=== PATIENT | female | born 1965 | race Caucasian/White ===

== ENCOUNTER 2022-10-02 11:39 | Emergency (ER) | payer MEDICAID, SELFPAY ==
--- NOTE | ~2022-10-02 | XR_ITS ---
EXAMINATION: XR CHEST, 2 VIEWS CLINICAL INFORMATION: Left-sided chest pain. COMPARISON: 09/23/2015 TECHNIQUE: PA and lateral views of the chest were obtained. FINDINGS: Mild biapical pleural parenchymal scarring. No consolidation, pneumothorax, or pleural effusion. Cardiac and mediastinal contours are normal. Pulmonary vasculature is unremarkable. Trachea is midline. No acute osseous findings. XR/XR chest 2V IMPRESSION: No acute cardiopulmonary findings.
[2022-10-02 11:49] VITALS: BP 143/84; PULSE 96; RESP 18; TEMP 36.2; O2SAT 98; BMI 32.4
--- NOTE | 2022-10-02 11:49 | ECG_ITS ---
Test Reason : CHESTPAIN Blood Pressure : / mmHG Vent. Rate : 081 BPM Atrial Rate : 081 BPM P-R Int : 126 ms QRS Dur : 078 ms QT Int : 356 ms P-R-T Axes : 038 012 024 degrees QTc Int : 413 ms Normal sinus rhythm Normal ECG When compared with ECG of 23-OCT-2015 10:00, No significant change was found Referred By: Ana Lind Electronically Signed By:Joe Mohan
--- NOTE | 2022-10-02 11:49 | ED.CHESTPAIN ---
HPI - Chest Pain General Chief Complaint: Chest Pain <WOO Wild - Last Filed: 10/02/22 11:52> Stated Complaint: sharp CP L side <WOO Wild - Last Filed: 10/02/22 11:52> Time Seen by Provider: 10/02/22 12:14 <WOO Wild - Last Filed: 10/02/22 11:52> Source: patient <Erin High MD - Last Filed: 10/02/22 15:50> Mode of arrival: ambulatory <Erin High MD - Last Filed: 10/02/22 15:50> History of Present Illness HPI narrative: 57-year-old female who comes in with concerns regarding a swelling over the left superior anterior chest that is not been associated with any shortness of breath, fever, chills, nipple discharge, chest pain. Patient denies any noted redness to the area and denies any traumatic event. <Erin High MD - Last Filed: 10/02/22 15:50> Related Data Allergies/Adverse Reactions: Allergies Allergy/AdvReac Type Severity Reaction Status Date / Time No Known Allergies Allergy Verified 10/02/22 11:53 <WOO Wild - Last Filed: 10/02/22 11:52> Review of Systems Review of Systems: Pertinent positives and negatives as stated in HPI. <Erin High MD - Last Filed: 10/02/22 15:50> PMFSH Past Medical History Source: nursing notes reviewed <Erin High MD - Last Filed: 10/02/22 15:50> Social History Social History: Social History Advance Directives: No Advance Directives Information Provided: No <WOO Wild - Last Filed: 10/02/22 11:52> Physical Exam Vital Signs: Vital Signs: Last Vital Signs Temp 97.1 F 10/02/22 11:49 Pulse 96 10/02/22 11:49 Resp 18 10/02/22 11:49 BP 143/84 H 10/02/22 11:49 Pulse Ox 98 10/02/22 11:49 O2 Del Method 10/02/22 11:49 BMI result Body Mass Index 32.4 <WOO Wild - Last Filed: 10/02/22 11:52> Vital Signs: Last Vital Signs Temp 97.1 F 10/02/22 11:49 Pulse 96 10/02/22 11:49 Resp 18 10/02/22 11:49 BP 143/84 H 10/02/22 11:49 Pulse Ox 98 10/02/22 11:49 O2 Del Method 10/02/22 11:49 BMI result Body Mass Index 32.4 VITAL SIGNS: Reviewed. GENERAL: Well developed, well nourished, in no acute distress. HEAD: Normocephalic/atraumatic EYES: PERRLA, EOMI LUNGS: Normal breath sounds. No adventitious sounds or accessory muscle use. 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 CARDIOVASCULAR: Regular rate and rhythm without noted murmurs ABDOMEN: Soft, non-tender, non-distended with bowel sounds. MUSCULOSKELETAL: No tenderness, deformities, or effusions noted on gross inspection. EXTREMITIES: No cyanosis, clubbing or edema. SKIN: Inspection of the skin reveals no rashes NEUROLOGIC: Alert and oriented x 4. Strength and sensation to light touch were grossly intact x 4. <Erin High MD - Last Filed: 10/02/22 15:50> Course Course Course Narrative: RME - 57 yo female former smoker (quit Apr) with no medical problems presents to the ER with worsening nonradiating left sided chest pain for the last 1 week, associated with SOB. Worse with deep breaths, palpation and cough. Reproducible on exam. VSS in triage, lungs clear. Will get CXR, EKG, trop and labs workup. <WOO Wild - Last Filed: 10/02/22 11:52> Medical Decision Making Medical Decision Making MDM Narrative: 57-year-old female who presents with barely perceptible swelling and firmness at the superior left anterior chest wall without history of constitutional symptoms to suggest acute infection. Patient did have mammography within the past 3 years. I have reviewed all investigations my interpretation is that this is likely musculoskeletal in nature, however I did discuss with the patient at bedside that it would be very important for her to follow-up with her primary care provider, she will be started on combination analgesics. <Erin High MD - Last Filed: 10/02/22 15:50> Differential Diagnosis Please see the discussion above <Erin High MD - Last Filed: 10/02/22 15:50> Lab Data Please see the discussion above <Erin High MD - Last Filed: 10/02/22 15:50> Result Diagrams: 10/02/22 12:22 10/02/22 12:22 <WOO Wild - Last Filed: 10/02/22 11:52> Labs: Lab Results 10/02/22 10/02/22 10/02/22 Range/Units 12:22 12:22 12:22 WBC 12.9 H (4.8-10.8) X10*3/uL RBC 5.01 (4.20-5.50) X10*6/uL Hgb 13.4 (12.0-16.0) g/dl Hct 42.1 (37.0-47.0) % MCV 84.0 (80.0-98.0) fL MCH 26.7 L (27.0-33.0) pg MCHC 31.8 (31.0-35.0) g/dl RDW 13.7 (11.0-16.0) % Plt Count 371 (160-400) X10*3/uL MPV 10.3 (9.4-12.3) fL Immature Gran % (Auto) 0.5 H (0.0-0.4) % Neut % (Auto) 63.1 (45-73) % Lymph % (Auto) 29.2 (20-40) % Lipscomb % (Auto) 5.2 (2-11) % Eos % (Auto) 1.5 (0-4) % Baso % (Auto) 0.5 (0-2) % Lymph # (Auto) 3.8 (1.2-4.9) X10*3/uL Lipscomb # (Auto) 0.7 (0.1-1.2) X10*3/uL Eos # (Auto) 0.2 (0.0-0.4) X10*3/uL Baso # (Auto) 0.1 (0.0-0.2) X10*3/uL Abs Immat Gran (auto) 0.06 H (0.00-0.03) X10*3/uL Absolute Neuts (auto) 8.1 (2.0-8.3) x10*3/uL Absolute Nucleated RBC 0.000 (0.0-0.012) X10*3/uL Nucleated RBC % (auto) 0.0 (0.0-0.2) /100WBC PT (10.0-13.1) SEC INR (0.9-1.1) APTT (26.0-36.4) SEC Sodium 141 (135-145) mmol/L Potassium 4.2 (3.3-5.1) mmol/L Chloride 111 H (96-108) mmol/L Carbon Dioxide 21 L (22-29) mmol/L Anion Gap 13 (12-20) BUN 16 (9-16) mg/dL Creatinine 0.70 (0.5-1.4) mg/dL Estim Creat Clear Calc 103.2 Estimated GFR > 60 Random Glucose 109 (60-115) mg/dL Calcium 9.3 (8.4-10.2) mg/dL Magnesium 2.1 (1.6-2.6) mg/dL Total Bilirubin 0.4 (0.0-1.0) mg/dL Direct Bilirubin < 0.2 (0.0-0.5) mg/dL AST 20 (5-31) U/L ALT 24 (0-31) U/L Alkaline Phosphatase 136 H (39-117) U/L Troponin I High Sens < 3.5 (<3.5-17.0) ng/L B-Natriuretic Peptide (<100) pg/mL Total Protein 7.0 (6.5-8.0) g/dL Albumin 4.0 (3.5-5.0) g/dL COVID-19 (SOFÍA) (Negative) COVID-19 Clin Com Influenza Type A (RAE) (Negative) Influenza Type B (RAE) (Negative) Influenza A & B Note 10/02/22 10/02/22 10/02/22 Range/Units 12:22 12:22 12:22 WBC (4.8-10.8) X10*3/uL RBC (4.20-5.50) X10*6/uL Hgb (12.0-16.0) g/dl Hct (37.0-47.0) % MCV (80.0-98.0) fL MCH (27.0-33.0) pg MCHC (31.0-35.0) g/dl RDW (11.0-16.0) % Plt Count (160-400) X10*3/uL MPV (9.4-12.3) fL Immature Gran % (Auto) (0.0-0.4) % Neut % (Auto) (45-73) % Lymph % (Auto) (20-40) % Lipscomb % (Auto) (2-11) % Eos % (Auto) (0-4) % Baso % (Auto) (0-2) % Lymph # (Auto) (1.2-4.9) X10*3/uL Lipscomb # (Auto) (0.1-1.2) X10*3/uL Eos # (Auto) (0.0-0.4) X10*3/uL Baso # (Auto) (0.0-0.2) X10*3/uL Abs Immat Gran (auto) (0.00-0.03) X10*3/uL Absolute Neuts (auto) (2.0-8.3) x10*3/uL Absolute Nucleated RBC (0.0-0.012) X10*3/uL Nucleated RBC % (auto) (0.0-0.2) /100WBC PT 12.9 (10.0-13.1) SEC INR 1.1 (0.9-1.1) APTT 30.3 (26.0-36.4) SEC Sodium (135-145) mmol/L Potassium (3.3-5.1) mmol/L Chloride (96-108) mmol/L Carbon Dioxide (22-29) mmol/L Anion Gap (12-20) BUN (9-16) mg/dL Creatinine (0.5-1.4) mg/dL Estim Creat Clear Calc Estimated GFR Random Glucose (60-115) mg/dL Calcium (8.4-10.2) mg/dL Magnesium (1.6-2.6) mg/dL Total Bilirubin (0.0-1.0) mg/dL Direct Bilirubin (0.0-0.5) mg/dL AST (5-31) U/L ALT (0-31) U/L Alkaline Phosphatase (39-117) U/L Troponin I High Sens (<3.5-17.0) ng/L B-Natriuretic Peptide 31 (<100) pg/mL Total Protein (6.5-8.0) g/dL Albumin (3.5-5.0) g/dL COVID-19 (SOFÍA) Negative (Negative) COVID-19 Clin Com See Note Influenza Type A (RAE) (Negative) Influenza Type B (RAE) (Negative) Influenza A & B Note 10/02/22 Range/Units 12:22 WBC (4.8-10.8) X10*3/uL RBC (4.20-5.50) X10*6/uL Hgb (12.0-16.0) g/dl Hct (37.0-47.0) % MCV (80.0-98.0) fL MCH (27.0-33.0) pg MCHC (31.0-35.0) g/dl RDW (11.0-16.0) % Plt Count (160-400) X10*3/uL MPV (9.4-12.3) fL Immature Gran % (Auto) (0.0-0.4) % Neut % (Auto) (45-73) % Lymph % (Auto) (20-40) % Lipscomb % (Auto) (2-11) % Eos % (Auto) (0-4) % Baso % (Auto) (0-2) % Lymph # (Auto) (1.2-4.9) X10*3/uL Lipscomb # (Auto) (0.1-1.2) X10*3/uL Eos # (Auto) (0.0-0.4) X10*3/uL Baso # (Auto) (0.0-0.2) X10*3/uL Abs Immat Gran (auto) (0.00-0.03) X10*3/uL Absolute Neuts (auto) (2.0-8.3) x10*3/uL Absolute Nucleated RBC (0.0-0.012) X10*3/uL Nucleated RBC % (auto) (0.0-0.2) /100WBC PT (10.0-13.1) SEC INR (0.9-1.1) APTT (26.0-36.4) SEC Sodium (135-145) mmol/L Potassium (3.3-5.1) mmol/L Chloride (96-108) mmol/L Carbon Dioxide (22-29) mmol/L Anion Gap (12-20) BUN (9-16) mg/dL Creatinine (0.5-1.4) mg/dL Estim Creat Clear Calc Estimated GFR Random Glucose (60-115) mg/dL Calcium (8.4-10.2) mg/dL Magnesium (1.6-2.6) mg/dL Total Bilirubin (0.0-1.0) mg/dL Direct Bilirubin (0.0-0.5) mg/dL AST (5-31) U/L ALT (0-31) U/L Alkaline Phosphatase (39-117) U/L Troponin I High Sens (<3.5-17.0) ng/L B-Natriuretic Peptide (<100) pg/mL Total Protein (6.5-8.0) g/dL Albumin (3.5-5.0) g/dL COVID-19 (SOFÍA) (Negative) COVID-19 Clin Com Influenza Type A (RAE) Negative (Negative) Influenza Type B (RAE) Negative (Negative) Influenza A & B Note See Note <WOO Wild - Last Filed: 10/02/22 11:52> Lab Results 10/02/22 10/02/22 10/02/22 Range/Units 12:22 12:22 12:22 WBC 12.9 H (4.8-10.8) X10*3/uL RBC 5.01 (4.20-5.50) X10*6/uL Hgb 13.4 (12.0-16.0) g/dl Hct 42.1 (37.0-47.0) % MCV 84.0 (80.0-98.0) fL MCH 26.7 L (27.0-33.0) pg MCHC 31.8 (31.0-35.0) g/dl RDW 13.7 (11.0-16.0) % Plt Count 371 (160-400) X10*3/uL MPV 10.3 (9.4-12.3) fL Immature Gran % (Auto) 0.5 H (0.0-0.4) % Neut % (Auto) 63.1 (45-73) % Lymph % (Auto) 29.2 (20-40) % Lipscomb % (Auto) 5.2 (2-11) % Eos % (Auto) 1.5 (0-4) % Baso % (Auto) 0.5 (0-2) % Lymph # (Auto) 3.8 (1.2-4.9) X10*3/uL Lipscomb # (Auto) 0.7 (0.1-1.2) X10*3/uL Eos # (Auto) 0.2 (0.0-0.4) X10*3/uL Baso # (Auto) 0.1 (0.0-0.2) X10*3/uL Abs Immat Gran (auto) 0.06 H (0.00-0.03) X10*3/uL Absolute Neuts (auto) 8.1 (2.0-8.3) x10*3/uL Absolute Nucleated RBC 0.000 (0.0-0.012) X10*3/uL Nucleated RBC % (auto) 0.0 (0.0-0.2) /100WBC PT (10.0-13.1) SEC INR (0.9-1.1) APTT (26.0-36.4) SEC Sodium 141 (135-145) mmol/L Potassium 4.2 (3.3-5.1) mmol/L Chloride 111 H (96-108) mmol/L Carbon Dioxide 21 L (22-29) mmol/L Anion Gap 13 (12-20) BUN 16 (9-16) mg/dL Creatinine 0.70 (0.5-1.4) mg/dL Estim Creat Clear Calc 103.2 Estimated GFR > 60 Random Glucose 109 (60-115) mg/dL Calcium 9.3 (8.4-10.2) mg/dL Magnesium 2.1 (1.6-2.6) mg/dL Total Bilirubin 0.4 (0.0-1.0) mg/dL Direct Bilirubin < 0.2 (0.0-0.5) mg/dL AST 20 (5-31) U/L ALT 24 (0-31) U/L Alkaline Phosphatase 136 H (39-117) U/L Troponin I High Sens < 3.5 (<3.5-17.0) ng/L B-Natriuretic Peptide (<100) pg/mL Total Protein 7.0 (6.5-8.0) g/dL Albumin 4.0 (3.5-5.0) g/dL COVID-19 (SOFÍA) (Negative) COVID-19 Clin Com Influenza Type A (RAE) (Negative) Influenza Type B (RAE) (Negative) Influenza A & B Note 10/02/22 10/02/22 10/02/22 Range/Units 12:22 12:22 12:22 WBC (4.8-10.8) X10*3/uL RBC (4.20-5.50) X10*6/uL Hgb (12.0-16.0) g/dl Hct (37.0-47.0) % MCV (80.0-98.0) fL MCH (27.0-33.0) pg MCHC (31.0-35.0) g/dl RDW (11.0-16.0) % Plt Count (160-400) X10*3/uL MPV (9.4-12.3) fL Immature Gran % (Auto) (0.0-0.4) % Neut % (Auto) (45-73) % Lymph % (Auto) (20-40) % Lipscomb % (Auto) (2-11) % Eos % (Auto) (0-4) % Baso % (Auto) (0-2) % Lymph # (Auto) (1.2-4.9) X10*3/uL Lipscomb # (Auto) (0.1-1.2) X10*3/uL Eos # (Auto) (0.0-0.4) X10*3/uL Baso # (Auto) (0.0-0.2) X10*3/uL Abs Immat Gran (auto) (0.00-0.03) X10*3/uL Absolute Neuts (auto) (2.0-8.3) x10*3/uL Absolute Nucleated RBC (0.0-0.012) X10*3/uL Nucleated RBC % (auto) (0.0-0.2) /100WBC PT 12.9 (10.0-13.1) SEC INR 1.1 (0.9-1.1) APTT 30.3 (26.0-36.4) SEC Sodium (135-145) mmol/L Potassium (3.3-5.1) mmol/L Chloride (96-108) mmol/L Carbon Dioxide (22-29) mmol/L Anion Gap (12-20) BUN (9-16) mg/dL Creatinine (0.5-1.4) mg/dL Estim Creat Clear Calc Estimated GFR Random Glucose (60-115) mg/dL Calcium (8.4-10.2) mg/dL Magnesium (1.6-2.6) mg/dL Total Bilirubin (0.0-1.0) mg/dL Direct Bilirubin (0.0-0.5) mg/dL AST (5-31) U/L ALT (0-31) U/L Alkaline Phosphatase (39-117) U/L Troponin I High Sens (<3.5-17.0) ng/L B-Natriuretic Peptide 31 (<100) pg/mL Total Protein (6.5-8.0) g/dL Albumin (3.5-5.0) g/dL COVID-19 (SOFÍA) Negative (Negative) COVID-19 Clin Com See Note Influenza Type A (RAE) (Negative) Influenza Type B (RAE) (Negative) Influenza A & B Note 10/02/22 Range/Units 12:22 WBC (4.8-10.8) X10*3/uL RBC (4.20-5.50) X10*6/uL Hgb (12.0-16.0) g/dl Hct (37.0-47.0) % MCV (80.0-98.0) fL MCH (27.0-33.0) pg MCHC (31.0-35.0) g/dl RDW (11.0-16.0) % Plt Count (160-400) X10*3/uL MPV (9.4-12.3) fL Immature Gran % (Auto) (0.0-0.4) % Neut % (Auto) (45-73) % Lymph % (Auto) (20-40) % Lipscomb % (Auto) (2-11) % Eos % (Auto) (0-4) % Baso % (Auto) (0-2) % Lymph # (Auto) (1.2-4.9) X10*3/uL Lipscomb # (Auto) (0.1-1.2) X10*3/uL Eos # (Auto) (0.0-0.4) X10*3/uL Baso # (Auto) (0.0-0.2) X10*3/uL Abs Immat Gran (auto) (0.00-0.03) X10*3/uL Absolute Neuts (auto) (2.0-8.3) x10*3/uL Absolute Nucleated RBC (0.0-0.012) X10*3/uL Nucleated RBC % (auto) (0.0-0.2) /100WBC PT (10.0-13.1) SEC INR (0.9-1.1) APTT (26.0-36.4) SEC Sodium (135-145) mmol/L Potassium (3.3-5.1) mmol/L Chloride (96-108) mmol/L Carbon Dioxide (22-29) mmol/L Anion Gap (12-20) BUN (9-16) mg/dL Creatinine (0.5-1.4) mg/dL Estim Creat Clear Calc Estimated GFR Random Glucose (60-115) mg/dL Calcium (8.4-10.2) mg/dL Magnesium (1.6-2.6) mg/dL Total Bilirubin (0.0-1.0) mg/dL Direct Bilirubin (0.0-0.5) mg/dL AST (5-31) U/L ALT (0-31) U/L Alkaline Phosphatase (39-117) U/L Troponin I High Sens (<3.5-17.0) ng/L B-Natriuretic Peptide (<100) pg/mL Total Protein (6.5-8.0) g/dL Albumin (3.5-5.0) g/dL COVID-19 (SOFÍA) (Negative) COVID-19 Clin Com Influenza Type A (RAE) Negative (Negative) Influenza Type B (RAE) Negative (Negative) Influenza A & B Note See Note <Erin High MD - Last Filed: 10/02/22 15:50> Independent Interpretation I performed an independent interpretation of an: EKG <Erin High MD - Last Filed: 10/02/22 15:50> Interpretation: Normal sinus rhythm, HR-81, no STEMI, LA/QRS/QTC is within normal limits. <Erin High MD - Last Filed: 10/02/22 15:50> Radiology Impression Radiologist Impression: My interpretation is in agreement with radiology's impression of the imaging study. <Erin High MD - Last Filed: 10/02/22 15:50> Critical Care Time Critical Care Time Critical Care Time: Yes <Erin High MD - Last Filed: 10/02/22 15:50> Total Critical Care Time: 30 <Erin High MD - Last Filed: 10/02/22 15:50> Attestation: I personally attest to this time spent taking care of the patient. <Erin High MD - Last Filed: 10/02/22 15:50> Discharge Plan Discharge Clinical Impression: Atypical chest pain, Musculoskeletal pain <WOO Wild - Last Filed: 10/02/22 11:52> Patient Disposition: Home, Self-Care <WOO Wild - Last Filed: 10/02/22 11:52> Instructions: Musculoskeletal Pain (ED), Chest Wall Pain (ED) <WOO Wild - Last Filed: 10/02/22 11:52> Additional Instructions: 1. Tylenol 1000 mg, orally, every 6 hours as needed pain control. Do not exceed 4000 mg within 24 hours. 2. Ibuprofen 400 mg, orally with milk or food, every 6 hours as for pain control. 3. Lidocaine patch, apply to area of maximal tenderness as directed on the outside packaging. 4. Please follow-up with your primary care provider by calling the office in setting up an appointment for re-evaluation and further outpatient management. Return to the ER for any worsening symptoms. <WOO Wild - Last Filed: 10/02/22 11:52> Referrals: Nehal Markham MD [Primary Care Provider] - <WOO Wild Last Filed: 10/02/22 11:52>
[2022-10-02 12:28] LABS: MANUAL DIFF FLAG NO
[2022-10-02 12:39] LABS: INTERNATIONAL NORM RATIO 1.1 (0.9-1.1); Prothrombin Time 12.9 SEC (10.0-13.1)
[2022-10-02 12:42] LABS: Basophils Absolute Auto 0.1 X10*3/uL (0.0-0.2); Basophils Percent Auto 0.5 % (0-2); Eosinophils Absolute Auto 0.2 X10*3/uL (0.0-0.4); Eosinophils Percent Auto 1.5 % (0-4); Hematocrit 42.1 % (37.0-47.0); Hemoglobin 13.4 g/dl (12.0-16.0); Imm Gran Abs Auto 0.06 X10*3/uL (0.00-0.03); Imm Gran Pct Auto 0.5 % (0.0-0.4); Lymphocytes Absolute Auto 3.8 X10*3/uL (1.2-4.9); Lymphocytes Percent Auto 29.2 % (20-40); Mean Corpuscular HGB Conc 31.8 g/dl (31.0-35.0); Mean Corpuscular Hemoglobin 26.7 pg (27.0-33.0); Mean Platelet Volume 10.3 fL (9.4-12.3); Monocytes Absolute Auto 0.7 X10*3/uL (0.1-1.2); Monocytes Percent Auto 5.2 % (2-11); Neutrophils Absolute Auto 8.1 x10*3/uL (2.0-8.3); Neutrophils Percent Auto 63.1 % (45-73); Partial Thromboplastin Time 30.3 SEC (26.0-36.4); Platelet Count 371 X10*3/uL (160-400); Red Blood Count 5.01 X10*6/uL (4.20-5.50); Red Cell Distribution Width 13.7 % (11.0-16.0); White Blood Count 12.9 X10*3/uL (4.8-10.8)
[2022-10-02 12:46] LABS: COVID-19 Test Negative (Negative); IDNOW Serial# 16C4AD1C; IDNOW Serial# BCCEAD1C; Influenza A Negative (Negative); Influenza B2 Negative (Negative)
[2022-10-02 12:55] LABS: Alanine Aminotransferase 24 U/L (0-31); Alkaline Phosphatase 136 U/L (39-117); Anion Gap 13 (12-20); Aspartate Amino Transferase 20 U/L (5-31); Bilirubin Direct < 0.2 mg/dL (0.0-0.5); Bilirubin Total 0.4 mg/dL (0.0-1.0); Blood Urea Nitrogen 16 mg/dL (9-16); Calcium 9.3 mg/dL (8.4-10.2); Carbon Dioxide 21 mmol/L (22-29); Chloride 111 mmol/L (96-108); Creatinine Clr Calc Pharmacy 103.2; Estimated Glomerular Filt Rate > 60; Glucose Random 109 mg/dL (60-115); Magnesium 2.1 mg/dL (1.6-2.6); Potassium 4.2 mmol/L (3.3-5.1); Sodium 141 mmol/L (135-145)
[2022-10-02 12:58] LABS: B Type Natriuretic Peptide 31 pg/mL (<100)
[2022-10-02 13:01] LABS: Troponin-I High Sensitivity < 3.5 ng/L (<3.5-17.0)
[2022-10-02] MEDS: Ibuprofen 400 MG TABLET PO (15:52)
[2022-10-02] MEDS: Acetaminophen 325 MG TABLET 975 MG PO (15:52)
== END 2022-10-02 16:01 | disposition home or self-care (01) ==
PROVIDERS: Physician Assistant; Emergency Provider Student in an Organized Health Care Education/Training Program; PCP Internal Medicine
DX: R07.89 Other chest pain (principal); M79.10 Myalgia, unspecified site; R06.02 Shortness of breath; Z20.822 Contact with and (suspected) exposure to COVID-19; Z20.828 Contact with and (suspected) exposure to other viral communicable diseases
CPT/HCPCS: 71046; 80048; 80076; 83735; 83880; 84484; 85025; 85610; 85730; 87502; 87635; 93005; 99283

== ENCOUNTER 2023-10-16 12:37 | Emergency (ER) | payer SELFPAY ==
--- NOTE | ~2023-10-16 | XR_ITS ---
EXAMINATION: XR CHEST CLINICAL INFORMATION: SOB and cough. COMPARISON: None available. TECHNIQUE: 2 views of the chest were obtained. FINDINGS: The lungs are well-expanded and clear of acute process. The heart size and pulmonary vascularity is normal. No gross bony abnormality seen. XR/XR chest 2V IMPRESSION: Unremarkable chest examination.
[2023-10-16 13:45] VITALS: BP 152/78; PULSE 95; RESP 18; TEMP 37.1; O2SAT 97; BMI 33.2
--- NOTE | 2023-10-16 13:47 | ED_ITS ---
HPI - General Adult General Chief complaint: Upper Respiratory Symptoms Stated complaint: cough sob Time Seen by Provider: 10/16/23 17:21 Source: patient Mode of arrival: ambulatory Limitations: no limitations History of Present Illness HPI narrative: Patient is a 58-year-old female presenting to the emergency department with complaint of nonproductive cough and shortness of breath for the past 2 days. 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 She denies fevers. Denies chest pain, palpitations, dizziness or lightheadedness. Denies any abdominal pain, nausea, vomiting, diarrhea. Has been using [id number] Mucinex and Sudafed with little relief. complaint: Cough Onset (ago): day(s) Relieving factors: none Exacerbating factors: movement Associated symptoms: cough Treatments prior to arrival: other Related Data Previous Rx's Medication Instructions Recorded benzonatate 100 mg capsule 100 mg PO TID PRN cough #20 caps 10/16/23 Allergies Allergy/AdvReac Type Severity Reaction Status Date / Time No Known Allergies Allergy Verified 10/16/23 13:48 Review of Systems Review of Systems: As per HPI. Yes all other systems are reviewed and are negative Constitutional: Constitutional: Reports as per HPI [facility] Social History Social History Advance Directives: No Advance Directives Information Provided: No Physical Exam ED Vital Signs: Vital Signs - 24 hr 10/16/23 13:45 Temperature 98.8 F Pulse Rate 95 Respiratory Rate 18 Blood Pressure 152/78 H Pulse Oximetry 97 Oxygen Delivery Method Room Air BMI result Body Mass Index 33.2 Vital signs have been reviewed and appear to be correct. Blood pressure elevated. Heart rate normal. Respiratory rate normal. Temperature normal. Oxygen saturation normal. Const General: cooperative, healthy appearing and no acute distress Orientation/consciousness: oriented to person, oriented to place, oriented to time and patient oriented x3 Limitations: no limitations HENMT Head: Yes normocephalic and Yes atraumatic Ears: external ears normal, TM's normal bilaterally and EAC's normal General nose exam: Normal external nose present Face and sinus: Yes face symmetric Mouth: oropharynx normal and moist mucous membranes Throat: Yes posterior oropharynx normal, Yes uvula midline, Yes tonsils absent and No uvular edema Eyes Pupils: Equal, round and reactive pupils present Neck Neck: Yes normal visual inspection and Yes supple Lymphatic: no lymphadenopathy noted Resp Effort & Inspection: normal respiratory effort and able to speak in complete sentences Auscultation: clear to auscultation bilaterally Cardio Rate: regular rate Rhythm: regular rhythm Heart sounds: S1 normal heart sound present and S2 normal heart sound present GI Palpation (GI): Soft to palpation and nontender Auscultation: normoactive bowel sounds General: Yes no CVA tenderness Back/Spine/Pelvis Back: no CVA tenderness Skin General skin exam: elasticity normal and turgor normal Neuro General: oriented to person, oriented to place, oriented to time, patient oriented x3, moves all extremities, no focal motor deficits and CN's II-XI intact bilaterally Cranial nerves: Yes Equal, round and reactive pupils present Cognition (Neuro): normal cognition Extrem General: Yes full ROM, Yes no pedal edema and Yes no calf tenderness Psych Mental Status: mental status grossly normal Affect: normal affect Thought process: Normal thought process present Course Course Course Narrative: This is an RME: Additional HPI, ROS, PE not included below will be deferred to primary provider. This is a 58-year-old female presenting to the emergency department with complaints of cough, and shortness of breath for the last 2 days. 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 Denies any chest pain, nausea, vomiting or diarrhea. No fevers. Lungs are clear to auscultation bilaterally. Plan: Viral swabs, chest x-ray Medical Decision Making Medical Decision Making MDM Narrative: Patient is a 58-year-old female presenting to the emergency department with complaint of nonproductive cough and shortness of breath for the past 2 days. On exam patient is awake, A+Ox3, BP elevated, VS otherwise WNL, afebrile, normal neurological exam without focal deficits, physical exam findings as above. Giv en reported symptoms and physical exam findings, initial differential includes viral upper respiratory infection, COVID, flu, bronchitis, pneumonia. Swabs for flu and COVID both negative. X-ray chest notable for no evidence of pneumonia. My interpretation is in agreement with the radiologist's interpretation. Results discussed with patient. Will prescribe benzonatate as needed for cough. Instructed patient to follow-up with primary care provider. Return precautions discussed at bedside. Patient verbalized understanding of and agreement with plan. Differential Diagnosis Differential Diagnoses: The differential diagnosis associated with the presentation includes As per [facility]. Lab Data [facility] Lab Attestation statement: I reviewed the patient's lab results. As per [facility]. Labs: Lab Results 10/16/23 Range/Units 13:56 COVID-19 (SOFÍA) Negative (Negative) COVID-19 Clin Com See Note Influenza Type A (RAE) Negative (Negative) Influenza Type B (RAE) Negative (Negative) Influenza A & B Note See Note Independent Interpretation I performed an independent interpretation of an: Plain X-Ray Interpretation: No evidence of pneumonia on chest x-ray Radiology Impression Discussion of test interpretation with radiology: I have reviewed the radiologist's reading. Radiologist Impression: XR/XR chest 2V IMPRESSION: Unremarkable chest examination. External Record Review External record reviewed: Inpatient record, Office record and Outpatient record Prescription Management I considered prescription management with: Other Discharge Plan Discharge Clinical Impression: Upper respiratory infection Qualifiers: URI type: unspecified viral URI Qualified Code(s): J06.9 - Acute upper resp iratory infection, unspecified Patient Disposition: Home, Self-Care Instructions: Upper Respiratory Infection (DC) Additional Instructions: You were evaluated in the emergency department today for shortness of breath and cough. Your Covid and flu tests were negative. Your symptoms are likely related to a viral illness which will resolve on its own with time and rest. You are being prescribed benzonatate which you can take every 8 hours as needed for cough. You should ensure adequate fluid intake, and can use Tylenol 650 mg or ibuprofen 600 mg every 6 hours as needed for fever or discomfort. Please follow-up with your primary care provider this week. Return to the emergency department if you develop chest pain, worsening shortness of breath, difficulty swallowing, fever 100.4? F or greater or any other concerning symptoms. Prescriptions: New benzonatate 100 mg capsule 100 mg PO TID PRN (Reason: cough) Qty: 20 0RF Stand Alone Forms: Work/School Release
[2023-10-16 14:25] LABS: COVID-19 Test Negative (Negative); IDNOW Serial# 152EDE1D
[2023-10-16 14:28] LABS: IDNOW Serial# 9DB6401D; Influenza A Negative (Negative); Influenza B2 Negative (Negative)
[2023-10-16 18:14] VITALS: BP 133/74; PULSE 90; RESP 20; TEMP 36.9; O2SAT 98
[2023-10-16 18:56] VITALS: O2SAT 98
== END 2023-10-16 18:55 | disposition home or self-care (01) ==
PROVIDERS: Physician Assistant Medical; Emergency Provider Emergency Medicine
DX: J06.9 Acute upper respiratory infection, unspecified (principal); R06.02 Shortness of breath; R05.9 Cough, unspecified; Z11.52 Encounter for screening for COVID-19
CPT/HCPCS: 71046; 87502; 87635; 99283; 99284

== ENCOUNTER 2024-11-25 10:55 | Outpatient (AMB) | payer OTHER, SELFPAY ==
--- NOTE | 2024-11-25 11:04 | A.OFFPC_ITS ---
Vital Signs 11/25/24 11:05 Height 5 ft 6 in Weight 202 lb BMI 32.6 BP 124/80 Pulse 78 Pulse Source Pulse Oximeter Temp 97.1 F Pulse Oximetry (%) 95 Oxygen Delivery Method Room Air Intake Visit Reasons: Establish Care Lay Out Former Required: No Accompanied by: Self / Same As Patient Allergies No Known Allergies Allergy (Verified 11/25/24 11:17) Medication List - Last Reconciled 11/25/24 by Carmen Lau PA-C Tobacco use date assessed: 11/25/24 Dental Screening Dental Screen Date: 11/25/24 Did you have a dental visit in the last 12 months?: No Did you have a dental problem in the last 6 months where you did not have access to dental care?: No HPI Establish Care HPI Details 59-year-old female coming to the office for the 1st time. Presenting with concerns about her nails. She reports discolored and breaking nails starting in 2020 or 2021, diagnosed as a possible fungal infection. She has not attempted any treatments and is considering oral antifungals. There is a history of dyshidrotic eczema with pruritic hand eruptions, considered annoying and treated partially with creams. The patient has been a long-term smoker from age 17, with tobacco use ceasing four years ago post-dental surgery with 19 pack year history. mammo: not UTD referral placed colonoscopy: declined today pap smear: referral placed to [facility] Surgical History (Updated 11/25/24 @ 11:23 by Carmen Lau PA-C) H/O oral surgery Hx of tonsillectomy Family History Father Diabetes Glaucoma Hyperlipemia Hypertension Liver disease Lung disease Mother Lung disease Social History Housing: Apartment Patient Tobacco Use Status: Former Tobacco user (smoked for 30-40 years ) Substance Use Type: Marijuana service: No Current occupational status: employed Current occupation: [employer] Cognitive needs: No Hearing needs: No Vision needs: No Female Reproductive History Menstrual Total pregnancies: 7 Full term: 7 History of abnormal pap smear: No Questionnaire PHQ-9 Over the last 2 weeks, how often have you been bothered by any of the following problems? 1. Little interest or pleasure in doing things: not at all 2. Feeling down, depressed, or hopeless: not at all 3. Trouble falling or staying asleep, or sleeping too much: not at all 4. Feeling tired or having little energy: not at all 5. Poor appetite or overeating: not at all 6. Feeling bad about yourself - or that you are a failure or have let yourself or your family down: not at all 7. Trouble concentrating on things, such as reading the newspaper or watching television: not at all 8. Moving or speaking so slowly that other people could have noticed. Or the opposite - being so fidgety or restless that you have been moving around a lot more than usual: not at all 9. Thoughts that you would be better off or of hurting yourself in some way: not at all Total score: 0 Source: Developed by Drs. William Shipley, Jackeline Ruby, Jamie Delgado and colleagues, with an educational rosita from [employer]. Thrive Questionnaire Date Thrive assessed: 11/25/24 I am a: Patient What is your living situation today?: I have a steady place to live Within the past 12 months, did the food you bought not last and you didn't have the money to get more?: Sometimes True Within the past 12 months, did you worry whether your food would run out before you got money to buy more?: Sometimes True Do you have trouble paying for medicines?: No Do you have trouble getting transportation to medical appointments?: No Do you have trouble paying your heating and electricity bill?: Yes Do you have trouble taking care of your child, family member or friend?: No Do you have trouble with day-to-day activities such as bathing, preparing meals, shopping, managing finances, etc.?: No Are you currently unemployed and looking for a job?: No Are you interested in more education?: No Please select the resources that you would like help with: None Currently or been in a relationship where the following occur: No concerns reported THRIVE Score: 3 AUDIT C Alcohol Use Questionnaire (AUDIT-C) 1. How often do you have a drink containing alcohol?: Never Total Score: 0 MAHESH-7 AMB Questionnaire MAHESH-7 Feeling nervous, anxious, or on edge: 0 = Not at all Not being able to stop or control worryin = Not at all Worrying too much about different things: 0 = Not at all Trouble relaxin = Not at all Being so restless that it is hard to sit still: 0 = Not at all Becoming easily annoyed or irritable: 0 = Not at all Feeling afraid as if something awful might happen: 0 = Not at all Total MAHESH-7 score (0-4 normal; 5-9 mild; 10-14 moderate; 15-21 severe): 0 Source: Developed by Drs. William Shipley, Jackeline Ruby, Jamie Delgado and colleagues, with an educational rosita from [employer]. Review of Systems Const Denies body aches, Denies chills, Denies fever(s), Denies headache(s) and Denies poor appetite Eyes Reports no additional complaints ENT Denies dysphagia, Denies dizziness, Denies headache(s) and Denies odynophagia Card Denies chest pain, Denies edema, Denies irregular heart rhythm, Denies lightheadedness and Denies dyspnea Resp Denies cough and Denies dyspnea GI Denies abdominal pain, Denies constipation, Denies dysphagia, Denies diarrhea, Denies nausea, Denies odynophagia and Denies vomiting Reports no additional complaints Musc Reports no additional complaints and Denies abnormal gait Skin/Breast Reports system reviewed and no additional complaints, except as documented Neuro Denies abnormal gait, Denies dizziness and Denies headache(s) Psych Reports no additional complaints Physical exam (Primary Care) Vital Signs: Last Vital Signs Temp 97.1 F 11/25/24 11:05 Pulse 78 11/25/24 11:05 BP 124/80 11/25/24 11:05 Pulse Ox 95 11/25/24 11:05 Oxygen Delivery Method Room Air 11/25/24 11:05 BMI result Body Mass Index 32.6 Tobacco/Smoking Status: Tobacco use Status Tobacco use date assessed 11/25/24 11/25/24 11:15 Patient Tobacco Use Status Former Tobacco user (smoked 11/25/24 11:23 for 30-40 years ) e-Cigarette/Vaping Use 11/25/24 11:15 PHQ-9: PHQ-9 Score PHQ-9: Total score 0 11/25/24 11:17 Thrive Assessment: Date of Thrive Assessment Date Thrive assessed 11/25/24 11/25/24 11:15 Currently or been in a relationship where the following occur: No concerns reported Const General: cooperative, healthy appearing, comfortable and no acute distress Orientation/consciousness: patient oriented x3 [facility] Head: Yes normocephalic Ears: hearing grossly normal bilaterally General nose exam: Normal external nose present Eyes General: appearance normal, both eyes and all related structures Conjunctivae: conjunctivae normal Neck Neck: Yes full ROM and Yes no lymphadenopathy Resp Effort & Inspection: normal respiratory effort Auscultation: clear to auscultation bilaterally, no crackles, no rales, no rhonchi and no wheezes Cardio Rate: regular rate Rhythm: regular rhythm Skin Other: Thickening and yellow discoloration of bilateral thumbs, yellow discoloration of bilateral index fingers and middle fingers without thickening General skin exam: no rashes or lesions noted Neuro General: patient oriented x3 Gait exam (Neuro): Normal gait present Extrem General: Yes normal to inspection, Yes full ROM and No edema Psych Affect: normal affect Attitude: cooperative Insight: Good insight present (Psych) Judgement: Good judgement present (Psych) Coding Level of Care Code New Pt Level 4 (37774) Diagnoses Nail fungal infection B35.1 Screening for hypercholesterolemia Z13.220 Screening for diabetes mellitus Z13.1 Obesity (BMI 30.0-34.9) E66.811 Dermatitis L30.9 Assessment & Plan Assessment & Plan (1) Nail fungal infection: Code(s): B35.1 - Tinea unguium Category: Medical Plan: During the consultation, I discussed her nail condition, attributing it to a fungal infection, and recommended oral terbinafine, contingent upon satisfactory liver function tests. Patient was told by her dentist there was concern for possible melanoma. Exam more consistent with fungal infection however will refer to dermatology for evaluation. (2) Screening for hypercholesterolemia: Code(s): Z13.220 - Encounter for screening for lipoid disorders Category: Medical Plan: Ordered for blood work (3) Screening for diabetes mellitus: Code(s): Z13.1 - Encounter for screening for diabetes mellitus Category: Medical Plan: Ordered for blood work (4) Obesity (BMI 30.0-34.9): Code(s): E66.811 - Obesity, class 1 Category: Medical Plan: Healthy diet and regular exercise is encouraged. (5) Dermatitis: Code(s): L30.9 - Dermatitis, unspecified Category: Medical Plan: Concerning the hand eczema, a mild topical corticosteroid was advised for trial. Plan Given her history of smoking and her family health background, screening for lung and colon cancer was discussed. She opted not to proceed with a lung cancer screening immediately. For colon cancer, we deferred any procedures at present although I did discuss the importance of this screening tool and strongly urged patient to consider. Other maintenance tasks include updating her mammograms and Pap smears. Additionally, we planned a follow-up in two months to evaluate progress in her management and continue with comprehensive annual health assessments. Physical activity enhancement was advised to support weight management. Patient was informed and verbally consented to the use of an ambient scribe for clinic note documentation during this visit. This note was constructed using voice recognition software. While every effort has been made to ensure accuracy and allergist/immunologist, still areas may have been included sometimes these areas may affect the content or meeting of the given symptoms. Total time spent caring for the patient today was thirty minutes. This includes time spent before the visit reviewing the chart, time spent during the visit, and time spent after the visit and documentation. Orders: Orders MM tomosynthesis screening BI 11/25/24 Z12.31 - Encounter for screening mammogram for malignant neoplasm of breast Complete Blood Count Auto Diff 11/25/24 Z00.00 - Encounter for general adult medical examination without abnormal findings Comprehensive Met. Panel 11/25/24 Z00.00 - Encounter for general adult medical examination without abnormal findings Free T4 (Free Thyroxine) 11/25/24 Z00.00 - Encounter for general adult medical examination without abnormal findings TSH reflex Free T4 11/25/24 Z00.00 - Encounter for general adult medical examination without abnormal findings Vitamin B12 and Folate 11/25/24 Z00.00 - Encounter for general adult medical examination without abnormal findings Vitamin D 25-OH Total 11/25/24 Z00.00 - Encounter for general adult medical examination without abnormal findings Lipid Panel 11/25/24 Z13.220 - Encounter for screening for lipoid disorders Hemoglobin A1c 11/25/24 Z13.1 - Encounter for screening for diabetes mellitus Referrals Dermatology Referral B35.1 - Tinea unguium [facility] Referral Z12.4 - Encounter for screening for malignant neoplasm of cervix Medications: New triamcinolone acetonide 0.1% 1 appl topical DAILY 60 mL 0RF
[2024-11-25 11:05] VITALS: BP 124/80; PULSE 78; TEMP 36.2; O2SAT 95; BMI 32.6
== END 2024-11-25 11:39 | disposition home or self-care (01) ==
DX: B35.1 Tinea unguium (principal); Z13.220 Encounter for screening for lipoid disorders; Z68.32 Body mass index [BMI] 32.0-32.9, adult; E66.811 Obesity, class 1; Z13.1 Encounter for screening for diabetes mellitus; L30.9 Dermatitis, unspecified

== ENCOUNTER 2024-11-25 10:55 | Outpatient (REF) | payer OTHER, SELFPAY ==
[2024-11-25 12:12] LABS: MANUAL DIFF FLAG NO
[2024-11-25 12:27] LABS: Basophils Absolute Auto 0.1 X10*3/uL (0.0-0.2); Basophils Percent Auto 0.6 % (0-2); Eosinophils Absolute Auto 0.2 X10*3/uL (0.0-0.4); Eosinophils Percent Auto 1.7 % (0-4); Hemoglobin 14.4 g/dl (12.0-16.0); Imm Gran Abs Auto 0.07 X10*3/uL (0.00-0.03); Imm Gran Pct Auto 0.6 % (0.0-0.4); Lymphocytes Absolute Auto 3.8 X10*3/uL (1.2-4.9); Lymphocytes Percent Auto 30.2 % (20-40); Mean Corpuscular HGB Conc 32.7 g/dl (31.0-35.0); Mean Corpuscular Volume 82.4 fL (80.0-98.0); Monocytes Absolute Auto 0.6 X10*3/uL (0.1-1.2); Monocytes Percent Auto 5.1 % (2-11); Neutrophils Absolute Auto 7.7 x10*3/uL (2.0-8.3); Neutrophils Percent Auto 61.8 % (45-73); Platelet Count 321 X10*3/uL (160-400); Red Blood Count 5.34 X10*6/uL (4.20-5.50); Red Cell Distribution Width 14.6 % (11.0-16.0); White Blood Count 12.5 X10*3/uL (4.8-10.8)
[2024-11-25 12:35] LABS: Estimated Average Glucose 114 mg/dL; Hemoglobin A1C 144.2916 umol/L; Hemoglobin A1c % 5.6 % (<6.0); Total Hemoglobin (HGBA1C) 3784.8483 umol/L
[2024-11-25 12:56] LABS: Alanine Aminotransferase 38 U/L (0-31); Albumin Level 4.1 g/dL (3.5-5.0); Alkaline Phosphatase 142 U/L (39-117); Anion Gap 12 (12-20); Aspartate Amino Transferase 36 U/L (5-31); Bilirubin Total 0.7 mg/dL (0.0-1.0); Blood Urea Nitrogen 14 mg/dL (9-16); Calcium 9.2 mg/dL (8.4-10.2); Carbon Dioxide 20 mmol/L (22-29); Chloride 113 mmol/L (96-108); Cholesterol 161 mg/dL (<200); Estimated Glomerular Filt Rate > 60; Glucose Random 82 mg/dL (60-115); HDL Cholesterol 33 mg/dL (>40); LDL Cholesterol Calculated 116 mg/dL (<100); Potassium 4.1 mmol/L (3.3-5.1); Sodium 141 mmol/L (135-145); Total Protein 7.7 g/dL (6.5-8.0); Triglycerides 64 mg/dL (<150)
[2024-11-25 13:17] LABS: Free T4 (Free Thyroxine) 1.12 ng/dL (0.71-1.85); TSH reflex Free T4 0.54 uIU/mL (0.32-4.0); Vitamin D 25-OH Total 10.3 ng/mL (>30)
[2024-11-25 13:24] LABS: Folate 10.6 ng/mL (> or = 4.0); Vitamin B12 260 pg/mL (200-900)
--- OUTSIDE RECORDS SUMMARY | 2024-11-25 14:30 | XMS_ITS | Clinical Summary ---
Author Organization [employer] Address [address] [place] [address] Care Team Providers Care Lan Administrator Name Role Phone Unavailable Primary Care Provider Unavailabl e Allergies No known active allergies Medications No known medications Social History Tobacco Use Types Packs/Day Years Used Date Smoking Tobacco: Never Smokeless Tobacco: Never Tobacco Cessation:Counseling Given: Not Answered Alcohol Use Standard Drinks/Week Comments Never 0 (1 standard drink = 0.6 oz pur e alcohol) Comments Unknown Sex and Gender Information Value Date Recorded Sex Assigned at Female 07/22/2022 10:16 AM EDT Legal Sex Female 10:16 AM EDT Gender Identity Choose not to disclose 10:16 AM EDT Sexual Orientation Choose not to disclose 2021 10:16 AM EDT Last Filed Vital Signs Vital Sign Reading Time Taken Comments Blood Pressure 120/84 12/16/2022 2:25 PM EDT Pulse - - Temperature - - Respiratory Rate - - Oxygen Saturation - - Inhaled Oxygen Concentration - - Weight - - Height - - Body Mass Index - - Plan of Treatment Health Maintenance Due Date Last Done Comments CT Colonography 1967 Colonoscopy 1967 Colorectal Cancer Screening 1967 Dental Oral Exam 1967 Dental Prophylaxis 1967 Dental X-Ray: Bitewings 1967 Dental X-Ray: Full Mouth 1967 Depression Screening 1967 FIT DNA/Cologuard 1967 FIT 1967 FOBT 1967 HIV Screening 1967 SDOH Screening 1967 Sigmoidoscopy 1967 Alcohol/Substance Use Screening 1979 Hepatitis C Screening 1985 Hepatitis B Vaccines (1 of 3 - 19+ 3-dose series) 1986 Pap Smear 1988 Cervical Cancer Screening 1997 HPV/Cotest 1997 Mammogram 2007 Pneumococcal Vaccine: 50+ Years (1 of 1 - PCV) 2017 Zoster Vaccines (1 of 2) 2017 COVID-19 Vaccine (5 - 2023- season) 2024 04/22/2022, 10/09/2021, 02/20/2021, Additional history exists Influenza Vaccine (#1) 2024 Tobacco Screening 05/27/2024 05/27/2023 DTaP/Tdap/Td Vaccines (2 - Td or Tdap) 07/23/2026 07/23/2016 RSV Patients and Patients Aged 60 years or older (1 - 1-dose 75+ series) 2042 HIB Vaccines Aged Out No longer eligi ble based on patient's age to complete this topic HPV Vaccines Aged Out No longer eligi ble based on patient's age to complete this topic Hepatitis A Vaccines Aged Out No long er eligible based on patient's age to complete this topic IPV Vaccines Aged Out No longer eligi ble based on patient's age to complete this topic Meningococcal Vaccine Aged Out No michael victor manuel eligible based on patient's age to complete this topic RSV under 20 months Aged Out No longe r eligible based on patient's age to complete this topic Rotavirus Vaccines Aged Out No longer eligible based on patient's age to complete this topic Insurance [place] * Guarantor: Sushila Willams Account Type Relation to Patient Date of Phone Billing Address Personal/Family Self [address] [place] [address] * Guarantor: Sushila Willams Account Type Relation to Patient Date of Phone Billing Address Personal/Family Self [address] [place] [address]
== END 2024-11-25 10:56 | disposition home or self-care (01) ==
LOC: HO.LAB 10:55
DX: B35.1 Tinea unguium (principal); E66.811 Obesity, class 1; L30.9 Dermatitis, unspecified; Z13.1 Encounter for screening for diabetes mellitus; Z13.220 Encounter for screening for lipoid disorders; Z00.00 Encounter for general adult medical examination without abnormal findings
CPT/HCPCS: 36415; 80053; 80061; 82306; 82607; 82746; 83036; 84439; 84443; 85025

== ENCOUNTER 2025-01-25 10:24 | Outpatient (AMB) | payer OTHER, SELFPAY ==
--- NOTE | 2025-01-25 10:33 | MHC.PC.OV ---
Vital Signs 01/25/25 10:34 Height 5 ft 6 in Weight 205 lb 2 oz BMI 33.1 BP 110/72 Blood Pressure Location Lt brachial Position Sitting Pulse 69 Pulse Source Pulse Oximeter Temp 97.1 F Temp Source Temporal Artery Scan Pulse Oximetry (%) 97 Oxygen Delivery Method Room Air Intake Visit Reasons: annual exam Intake Note: Patient is here today for a physical. Worship Director Required: No Off Premise Service Representative: Not Required per policy Accompanied by: Self / Same As Patient Allergies No Known Allergies Allergy (Verified 01/25/25 10:49) Medication List - Last Reconciled 01/25/25 by Carmen Lau PA-C cholecalciferol (vitamin D3) 25 mcg PO DAILY terbinafine HCl 250 mg PO DAILY 8 weeks triamcinolone acetonide 0.1% 1 appl topical DAILY Tobacco use date assessed: 01/25/25 Dental Screening Dental Screen Date: 11/25/24 HPI annual exam HPI Details 59-year-old female with past medical history of obesity and dermatitis last seen 11/2024 coming in for annual exam. Presenting with hand dermatitis. The patient reports episodes of pruritus primarily affecting the hands, with the regular use of a steroid cream offering inconsistent relief. Past history of elevated liver enzymes requiring follow-up testing. Reports of recurrent nail fungus with failure in prescription delivery. Urinary incontinence occurring with coughing or sneezing, likely related to pelvic floor muscle weakness due to multiple pregnancies. No history of diabetes; liver function prior assessments indicate mildly elevated enzyme levels. 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 Cognitive needs: No Hearing needs: No Vision needs: No Questionnaire Thrive Questionnaire Date Thrive assessed: 11/25/24 I am a: Patient What is your living situation today?: I have a steady place to live Within the past 12 months, did the food you bought not last and you didn't have the money to get more?: Sometimes True Within the past 12 months, did you worry whether your food would run out before you got money to buy more?: Sometimes True Do you have trouble paying for medicines?: No Do you have trouble getting transportation to medical appointments?: No Do you have trouble paying your heating and electricity bill?: Yes Do you have trouble taking care of your child, family member or friend?: No Do you have trouble with day-to-day activities such as bathing, preparing meals, shopping, managing finances, etc.?: No Are you currently unemployed and looking for a job?: No Are you interested in more education?: No Please select the resources that you would like help with: None Currently or been in a relationship where the following occur: No concerns reported THRIVE Score: 3 MAHESH-7 AMB Questionnaire MAHESH-7 Date MAHESH - 7 assessed: 11/25/24 Source: Developed by Drs. William Shipley, Jackeline Ruby, Jamie Delgado and colleagues, with an educational rosita from [employer]. Review of Systems Const Denies body aches, Denies fatigue, Denies fever(s), Denies frequent falls, Denies headache(s) and Denies weakness Eyes Reports no additional complaints and Denies change in vision ENT Denies dysphagia, Denies dizziness, Denies facial pain, Denies headache(s), Denies nasal congestion and Denies odynophagia Card Denies chest pain, Denies syncope, Denies irregular heart rhythm, Denies leg edema, Denies lightheadedness and Denies dyspnea Resp Denies cough and Denies dyspnea GI Denies abdominal pain, Denies constipation, Denies dysphagia, Denies dyspepsia, Denies diarrhea, Denies nausea, Denies odynophagia and Denies vomiting Details: stress incontinence for many years Denies urinary frequency, Denies dysuria, Denies urinary hesitancy and Denies urinary urgency Musc Denies back pain and Denies myalgias Skin/Breast Reports system reviewed and no additional complaints, except as documented Neuro Denies dizziness, Denies syncope, Denies frequent falls, Denies headache(s) and Denies weakness Psych Reports no additional complaints Endo Denies fatigue Physical exam (Primary Care) Vital Signs: Last Vital Signs Temp 97.1 F 01/25/25 10:34 Pulse 69 01/25/25 10:34 BP 110/72 01/25/25 10:34 Pulse Ox 97 01/25/25 10:34 Oxygen Delivery Method Room Air 01/25/25 10:34 BMI result Body Mass Index 33.1 Tobacco/Smoking Status: Tobacco use Status Tobacco use date assessed 01/25/25 01/25/25 10:40 Patient Tobacco Use Status Former Tobacco user (smoked 01/25/25 10:40 for 30-40 years ) e-Cigarette/Vaping Use Never Used 01/25/25 10:40 Thrive Assessment: Date of Thrive Assessment Date Thrive assessed 11/25/24 01/25/25 10:40 Currently or been in a relationship where the following occur: No concerns reported Const General: cooperative, healthy appearing, comfortable and no acute distress Orientation/consciousness: patient oriented x3 HENMT Head: Yes normocephalic Ears: hearing grossly normal bilaterally, external ears normal, TM's normal bilaterally and EAC's normal General nose exam: Normal external nose present Face and sinus: Yes normal facial exam and Yes sinuses nontender Mouth: Normal oral and palatal mucosa present and tongue normal Throat: Yes posterior oropharynx normal Eyes General: appearance normal, both eyes and all related structures Conjunctivae: conjunctivae normal Pupils: Equal, round and reactive pupils present EOM: EOMs intact bilaterally and No Nystagmus present Neck Neck: Yes normal visual inspection, Yes full ROM and Yes no lymphadenopathy Chest Chest palpation & inspection: normal inspection of the chest Resp Effort & Inspection: normal respiratory effort Auscultation: clear to auscultation bilaterally, no crackles, no rales, no rhonchi, no wheezes and breath sounds present Cardio Rate: regular rate Rhythm: regular rhythm Peripheral pulses: radial pulses present and dorsalis pedis present GI Inspection: Yes normal to inspection and No Abdominal wall edema Palpation (GI): Soft to palpation, not firm and nontender Auscultation: normal bowel sounds Rectal Exam - Female: deferred General: Yes no CVA tenderness Back/Spine/Pelvis Back: no CVA tenderness Skin Other: No discoloration, rash or visualized bumps/lesions of bilateral hands. She does have small areas of open skin from excoriations. General skin exam: no rashes or lesions noted Neuro General: patient oriented x3 Cranial nerves: Yes Equal, round and reactive pupils present, Yes Midline tongue present, Yes Ability to bilaterally elevate shoulders present and No Nystagmus present Gait exam (Neuro): Normal gait present Extrem General: Yes normal to inspection, Yes full ROM, No no pedal edema and No edema Psych Speech and movement: Normal speech and movement present Affect: normal affect Insight: Good insight present (Psych) Judgement: Good judgement present (Psych) Coding Level of Care Code Est Pt Prev Care 40-64y(21966) Diagnoses Obesity (BMI 30.0-34.9) E66.811 Dermatitis L30.9 Nail fungal infection B35.1 Annual physical exam Z00.00 Elevated LFTs R79.89 Stress incontinence N39.3 Assessment & Plan Assessment & Plan (1) Obesity (BMI 30.0-34.9): Code(s): E66.811 - Obesity, class 1 Category: Medical Plan: Healthy diet and regular exercise is encouraged. (2) Dermatitis: Code(s): L30.9 - Dermatitis, unspecified Category: Medical Plan: Concerning the hand eczema, a mild topical corticosteroid was advised for trial. Patient had mild relief with the topical corticosteroid. Plan to add Amlactin to regimen and advised patient to reach out to Dermatology to schedule appointment. Advised against scratching as it has led to open areas of skin and can lead to infection. No evidence of infection today. (3) Nail fungal infection: Code(s): B35.1 - Tinea unguium Category: Medical Plan: During the consultation, I discussed her nail condition, attributing it to a fungal infection, and recommended oral terbinafine. Liver tests are mildly elevated plan to obtain blood work in 1 month to ensure liver tests are not elevated with the use of terbinafine. Also recommended reaching out to Dermatology for appointment. (4) Annual physical exam: Code(s): Z00.00 - Encounter for general adult medical examination without abnormal findings Category: Medical Plan: Patient is up-to-date on all recommended routine screenings and vaccinations for her age. She is due for Cologuard testing and referral was placed today. Referral was placed at last visit for Pap smear and gynecology to make an appointment. She has a mammogram today and is up-to-date on all vaccines. Blood work is up-to-date and has been reviewed with the patient today. (5) Elevated LFTs: Code(s): R79.89 - Other specified abnormal findings of blood chemistry Category: Medical Plan: LFTs mildly elevated on last blood work. Plan to continue to monitor at this time and also placed orders for hepatitis panel and abdominal ultrasound for further evaluation. (6) Stress incontinence: Code(s): N39.3 - Stress incontinence (female) (male) Category: Medical Plan: Patient complaining of stress incontinence discussed pelvic floor physical therapy which can be completed at the hospital and/or Urogynecology specialists. Both were declined by the patient today and she agrees to continue to monitor her symptoms and reach out if she would like further evaluation. Plan I have advised the patient to see a news producer for her hand dermatitis as current management has been inadequate. Her elevated liver enzymes require more evaluation, thus, further blood work and an abdominal ultrasound have been ordered. For her nail fungus, terbinafine will be sent again, with liver function retesting planned in a month. Her urinary incontinence could benefit from pelvic floor therapy, which was discussed with her. Management of her Vitamin D deficiency through supplementation was affirmed, while cholesterol control was addressed through dietary counseling. I informed her about the upcoming mammogram and have conveyed options for colorectal cancer screening. Vision and hearing follow-ups were also suggested given her ongoing concerns. This note was constructed using voice recognition software. While every effort has been made to ensure accuracy and sleep medicine physician, still areas may have been included sometimes these areas may affect the content or meeting of the given symptoms. Total time spent caring for the patient today was 30 minutes. This includes time spent before the visit reviewing the chart, time spent during the visit, and time spent after the visit and documentation. Patient was informed and verbally consented to the use of an ambient scribe for clinic note documentation during this visit. Orders: Orders US abdomen complete Today R79.89 - Other specified abnormal findings of blood chemistry Hepatitis B,C Profile Today R79.89 - Other specified abnormal findings of blood chemistry Referrals Cologuard Test Z12.11 - Encounter for screening for malignant neoplasm of colon, Z12.12 - Encounter for screening for malignant neoplasm of rectum Medications: New ammonium lactate 12% (AmLactin) 1 appl topical DAILY 225 grams 1RF Refilled terbinafine HCl 250 mg PO DAILY 8 weeks 56 tabs 0RF
[2025-01-25 10:34] VITALS: BP 110/72; PULSE 69; TEMP 36.2; O2SAT 97; BMI 33.1
--- OUTSIDE RECORDS SUMMARY | 2025-01-25 11:55 | XMS_ITS | Clinical Summary ---
Author Organization [employer] Address [address] [place] [address] Care Team Providers Care Ship Fastener Name Role Phone Unavailable Primary Care Provider [...] Personal/Family Self [address] [place] [address] * Guarantor: Sushila Willams Account Type Relation to Patient Date of Phone Billing Address Personal/Family Self [address] [place] [address] * Guarantor: Sushila Willams Account Type Relation to Patient Date of Phone Billing Address Personal/Family Self [address] [place] [address]
== END 2025-01-25 11:16 | disposition home or self-care (01) ==
LOC: HO.HMCH 10:25
DX: Z00.00 Encounter for general adult medical examination without abnormal findings (principal); E66.811 Obesity, class 1; Z68.33 Body mass index [BMI] 33.0-33.9, adult; L30.9 Dermatitis, unspecified; B35.1 Tinea unguium; R79.89 Other specified abnormal findings of blood chemistry; N39.3 Stress incontinence (female) (male)

== ENCOUNTER 2025-01-25 11:19 | Outpatient (REF) | payer OTHER, SELFPAY ==
--- OUTSIDE RECORDS SUMMARY | 2025-01-25 13:08 | XMS_ITS | Clinical Summary ---
Author Organization [employer] Address [address] [place] [address] Care Team Providers Care Nut Dehydrator Operator Name Role Phone Unavailable Primary Care Provider [...] Personal/Family Self [address] [place] [address] * Guarantor: Sushila Willams Account Type Relation to Patient Date of Phone Billing Address Personal/Family Self [address] [place] [address] * Guarantor: Sushila Willams Account Type Relation to Patient Date of Phone Billing Address Personal/Family Self [address] [place] [address]
== END 2025-01-25 11:20 | disposition home or self-care (01) ==
LOC: HO.MAMMO 11:19
DX: Z12.31 Encounter for screening mammogram for malignant neoplasm of breast (principal)
CPT/HCPCS: 77063; 77067

== ENCOUNTER → 2025-01-25 11:45 | Outpatient (BNV) | payer OTHER, SELFPAY | PROVIDERS: Visit Provider Internal Medicine | DX: Z12.31 Encounter for screening mammogram for malignant neoplasm of breast (principal) | CPT/HCPCS: 77063; 77067 ==

== ENCOUNTER 2025-08-07 10:20 | Emergency (ER) | payer SELFPAY ==
--- NOTE | 2025-08-07 | ECG_ITS ---
Test Reason : CHEST PAIN Blood Pressure : */* mmHG Vent. Rate : 88 BPM Atrial Rate : 88 BPM P-R Int : 104 ms QRS Dur : 76 ms QT Int : 346 ms P-R-T Axes : 3 28 34 degrees QTcB Int : 418 ms Sinus rhythm with short PA Otherwise normal ECG When compared with ECG of 02-Oct-2022 12:19, No significant change was found Referred By: Generic ED Physician Electronically Signed By: PERLA MELISSA
--- NOTE | ~2025-08-07 | XR_ITS ---
CLINICAL HISTORY: cough 2 view chest x-ray Comparison: CR/SR - XR CHEST 2 VIEWS - 10/16/23 14:08 EST CR/SR - XR CHEST 2 VIEWS - 10/02/22 12:05 EST Findings: No consolidation or effusion. Heart size is normal. No acute fracture. IMPRESSION: No acute cardiopulmonary findings. This document has been electronically signed by: Selwyn Galvez MD on 08/07/2025 12:21:58
[2025-08-07 10:36] VITALS: BP 154/70; PULSE 91; RESP 18; TEMP 36.7; O2SAT 95; BMI 32.3
[2025-08-07 11:01] LABS: Hematocrit 44.4 % (37.0-47.0); Hemoglobin 14.0 g/dl (12.0-16.0); Imm Gran Abs Auto 0.04 X10*3/uL (0.00-0.03); Imm Gran Pct Auto 0.4 % (0.0-0.4); Lymphocytes Absolute Auto 2.9 X10*3/uL (1.2-4.9); MANUAL DIFF FLAG NO; Mean Corpuscular HGB Conc 31.5 g/dl (31.0-35.0); Mean Corpuscular Hemoglobin 26.1 pg (27.0-33.0); Mean Corpuscular Volume 82.8 fL (80.0-98.0); NRBC Abs Auto 0.000 X10*3/uL (0.0-0.012); NRBC Pct Auto 0.0 /100WBC (0.0-0.2); Platelet Count 306 X10*3/uL (160-400); Red Blood Count 5.36 X10*6/uL (4.20-5.50); White Blood Count 10.2 X10*3/uL (4.8-10.8)
[2025-08-07 11:15] LABS: Anion Gap 13 (12-20); Blood Urea Nitrogen 14 mg/dL (9-16); Calcium 9.4 mg/dL (8.4-10.2); Carbon Dioxide 22 mmol/L (22-29); Chloride 110 mmol/L (96-108); Creatinine Clr Calc Pharmacy 98.0; Estimated Glomerular Filt Rate > 60; Potassium 4.3 mmol/L (3.3-5.1); Sodium 141 mmol/L (135-145)
[2025-08-07 11:35] LABS: Troponin-I High Sensitivity < 2.7 ng/L (<3.5-17.0)
[2025-08-07 12:01] LABS: Resp Syncy Virus RNA Qual PCR NEGATIVE (Negative); SARS COV2 PCR INHOUSE NEGATIVE (Negative)
--- NOTE | 2025-08-07 12:01 | ED_ITS ---
HPI - General Adult General Chief complaint: Upper Respiratory Symptoms Stated complaint: chest pain, sob Time Seen by Provider: 08/07/25 11:49 Source: patient and RN notes reviewed Mode of arrival: ambulatory Limitations: no limitations History of Present Illness ED Provider: JOSE Alarcon HPI narrative: 60-year-old female without medical history presents to the ED due to 3 days of URI symptoms. Patient states she woke up 3 days ago with mild ?sniffles?, dry cough, frontal headaches, and SOB. Patient states she has felt a sensation of chest pain in the middle of her chest that is only apparent when she is coughing. Patient reports she felt ?hot? for the past 2 days with subjective fever. Patient reports taking Excedrin for headache which does provide relief however headache returns once the medication wears off. Denies sick contacts, nausea, vomiting, abdominal pain, diarrhea, urinary symptoms MD complaint: dry cough, fever, headache, SOB Related Data Previous Rx's ?Medication ?Instructions ?Recorded cholecalciferol (vitamin D3) 25 25 mcg PO DAILY #90 ca ps 11/25/24 mcg (1,000 unit) capsule triamcinolone acetonide 0.1 % 1 appl topical DAILY #60 mL 11/25/24 lotion ammonium lactate 12 % lotion 1 appl topical DAILY #225 grams 01/25/25 (AmLactin) terbinafine HCl 250 mg tablet 250 mg PO DAILY 8 weeks #56 tabs 01/25/25 albuterol sulfate 90 mcg/actuation 2 inh inhalation Q4 -6H PRN 08/07/25 aerosol inhaler (Ventolin HFA) shortness of breath or wheezing #6.7 grams prednisone 20 mg tablet 40 mg (2 x 20 mg) PO DAILY 5 days 08/07/25 #10 tabs Allergies Allergy/AdvReac Type Severity Reaction Status Date / Time No Known Allergies Allergy Verified 08/07/25 10:40 Review of Systems 2 Review of Systems: Yes all other systems are reviewed and are negative PMFSH Past Medical History Attestation statement: The following information was validated with the patient. Source: old records reviewed and nursing notes reviewed Surgical History H/O oral surgery Hx of tonsillectomy Family History Family History Father Diabetes Glaucoma Hyperlipemia Hypertension Liver disease Lung disease Mother Lung disease Social History Social History Housing: Apartment Patient Tobacco Use Status: Former Tobacco user (smoked for 30-40 years ) e-Cigarette/Vaping Use: Never Used Second Hand Smoke Exposure: Yes Substance Use Type: Marijuana Advance Directives: No Advance Directives Information Provided: Yes Do you have a plan to hurt others: No Plan service: No Current occupational status: employed Current occupation: [employer] Cognitive needs: No Hearing needs: No Vision needs: No Physical Exam ED Vital Signs: Vital Signs - 24 hr 08/07/25 10:36 08/07/25 12:21 Temperature 98.0 F Pulse Rate 91 81 Respiratory Rate 18 18 Blood Pressure 154/70 H Pulse Oximetry 95 Oxygen Delivery Method Room Air BMI result Body Mass Index 32.3 GENERAL APPEARANCE: ?AxOx4, nontoxic appearing, no acute distress. HEENT: ?NC, AT. MMM. EOMI, clear conjunctiva, oropharynx clear. NECK: ?Supple without lymphadenopathy.? No stiffness or restricted ROM. HEART:? Normal rate and regular rhythm, normal S1/S2, no m/r/g LUNGS: Mild expiratory wheeze, mild rhonchi throughout the lower lung bases, no increased work of breathing, no accessory muscle use, no pursed lip breathing ABDOMEN: ?Soft, nontender, nondistended BACK: No CVAT, no obvious deformity. EXTREMITIES: ?Without cyanosis, clubbing or edema. NEUROLOGICAL: ?Grossly nonfocal. Alert and oriented, moving all 4 extremities. Skin: ?Warm and dry without any rash. Medications Administered Discontinued Medications Generic Name Dose Route Start Last Admin Trade Name Freq PRN Reason Stop Dose Admin Albuterol/Ipratropium 3 ml 08/07/25 12:20 08/07/25 12:25 Albuterol/Iprat 2.5/0.5mg 3 Ml Ampul.Neb INHALE 08/07/25 12:21 3 ml ONCE ONE Administration Medical Decision Making Medical Decision Making MDM Narrative: 60-year-old female without medical history presents to the ED due to 3 days of URI symptoms including runny nose, dry persistent cough, frontal headache, SOB when coughing and when walking around that has only been occuring since the patient started coughing. She does have a smoking history but quit smoking cigarettes 5 years ago. VS on initial observation-BP 154/70, pulse rate of 91, respiratory rate of 18, afebrile with oral temp of 98?, O2 saturation 95% on room air. On physical exam lungs with Mild expiratory wheeze, mild rhonchi throughout the lower lung bases, no increased work of breathing, no accessory muscle use, no pursed lip breathing Plan: Labs, EKG, CXR, bronchodilator protocol Labs without leukocytosis/leukopenia, no evidence of anemia, no electrolyte abnormalities. Viral serology negative EKG reveals sinus rhythm with a short OR interval, no ST-elevation/depression, initial troponin undetectable at <2.7, patient with chest discomfort only when coughing CXR WNL Patient received DuoNeb treatment in the department, and feels like her shortness of breath is significantly improved. Labs without leukocytosis, CXR WNL with improved symptoms after DuoNeb treatment. Patient's symptoms most likely viral in nature. Patient will be discharged home with 5 day course of 40 mg prednisone, and albuterol inhaler that she can use to manage shortness of breath, and coughing at home. I counseled patient to follow up with her primary care doctor to ensure resolution of her symptoms and ensure antibiotics are not needed. I counseled patient on strict return precautions. Patient feels well enough to go home and is in agreement with the plan. Differential Diagnosis Differential Diagnoses: The differential diagnosis associated with the presentation includes Dysrhythmia Viral illness Bronchitis COVID Flu Admission/Observation Consideration of admission/observation: Escalation of care including admission/observation considered Lab Data MDM Lab Attestation statement: I reviewed the patient's lab results. 08/07/25 10:57 08/07/25 10:57 Labs: Lab Results 08/07/25 08/07/25 08/07/25 Range/Units 10:49 10:56 10:57 WBC 10.2 (4.8-10.8) X10*3/uL RBC 5.36 (4.20-5.50) X10*6/uL Hgb 14.0 (12.0-16.0) g/dl Hct 44.4 (37.0-47.0) % MCV 82.8 (80.0-98.0) fL MCH 26.1 L (27.0-33.0) pg MCHC 31.5 (31.0-35.0) g/dl RDW 14.0 (11.0-16.0) % Plt Count 306 (160-400) X10*3/uL MPV 10.0 (9.4-12.3) fL Immature Gran % (Auto) 0.4 (0.0-0.4) % Neut % (Auto) 59.7 (45-73) % Lymph % (Auto) 28.6 (20-40) % [place] % (Auto) 8.5 (2-11) % Eos % (Auto) 2.1 (0-4) % Baso % (Auto) 0.7 (0-2) % Lymph # (Auto) 2.9 (1.2-4.9) X10*3/uL [place] # (Auto) 0.9 (0.1-1.2) X10*3/uL Eos # (Auto) 0.2 (0.0-0.4) X10*3/uL Baso # (Auto) 0.1 (0.0-0.2) X10*3/uL Abs Immat Gran (auto) 0.04 H (0.00-0.03) X10*3/uL Absolute Neuts (auto) 6.1 (2.0-8.3) x10*3/uL Absolute Nucleated RBC 0.000 (0.0-0.012) X10*3/uL Nucleated RBC % (auto) 0.0 (0.0-0.2) /100WBC Sodium 141 (135-145) mmol/L Potassium 4.3 (3.3-5.1) mmol/L Chloride 110 H (96-108) mmol/L Carbon Dioxide 22 (22-29) mmol/L Anion Gap 13 (12-20) BUN 14 (9-16) mg/dL Creatinine 0.71 (0.5-1.4) mg/dL Estim Creat Clear Calc 98.0 Estimated GFR > 60 Random Glucose 91 (60-115) mg/dL Calcium 9.4 (8.4-10.2) mg/dL Troponin I High Sens < 2.7 (<3.5-17.0) ng/L Influenza Type A (PCR) NEGATIVE (Negative) Influenza Type B (PCR) NEGATIVE (Negative) RSV RNA Qual (PCR) NEGATIVE (Negative) SARS-CoV-2 RNA (RT-PCR) NEGATIVE (Negative) Independent Interpretation I performed an independent interpretation of an: EKG and Plain X-Ray Interpretation: I personally interpreted the EKG which reveals sinus rhythm with shortened OR interval, no ST-elevation/depression Vent. Rate : 88 BPM Atrial Rate : 88 BPM P-R Int : 104 ms QRS Dur : 76 ms QT Int : 346 ms P-R-T Axes : 3 28 34 degrees QTcB Int : 418 ms Sinus rhythm with short OR Otherwise normal ECG When compared with ECG of 02-Oct-2022 12:19, No significant change was found I personally interpreted the CXR which was negative for opacities, infiltrates, pneumothorax, cardiomegaly, pleural effusion, I agree with the radiologist's interpretation Radiology Impression Discussion of test interpretation with radiology: I have reviewed the radiologist's reading. Radiologist Impression: CXR Findings: No consolidation or effusion. Heart size is normal. No acute fracture. IMPRESSION: No acute cardiopulmonary findings. This document has been electronically signed by: Selwyn Galvez MD on 08/07/2025 12:21:58 Dictated By: Selwyn Galvez MD Signed By: <Electronically signed by Selwyn Galvez MD in OV> 08/07/25 1223 External Record Review External record reviewed: Inpatient record, Office record and Outpatient record Prescription Management I considered prescription management with: Antibiotic (I considered antibiotics however patient without leukocytosis, CXR WNL. URI symptoms for 3 days, no indication for ABX at this time.) Chronic Conditions Patient?s care impacted by: Other (No known medical history) Discharge Plan Discharge Clinical Impression: Viral URI Patient Disposition: Home, Self-Care Instructions: Viral Syndrome (ED) Additional Instructions: You were evaluated in the ED today due to cough and shortness of breath. Your lab work was reassuring as there was no significant elevation or decrease in your white blood cell count indicative of infection. Your chest x-ray was normal. Your EKG was without any emergent findings, and your troponin which is a marker of cardiac stress or damage was undetectable today. Your symptoms are most likely due to a viral upper respiratory infection. There is no indication to start antibiotics at this time. As the virus will most likely resolve on its own. You are being prescribed a 5 day course of 40 mg prednisone, and albuterol inhaler that you can use for wheezing or shortness of breath. Please follow up with your primary care doctor to ensure resolution of your symptoms, if you have symptoms for 10 days or more you may need antibiotics. Please return to the emergency department if you experience shortness of breath, chest pain, nausea, vomiting, headaches, visual changes or any other new/worsening/concerning symptoms. Prescriptions: New prednisone 20 mg tablet 40 mg PO DAILY 5 Days Qty: 10 0RF albuterol sulfate [Ventolin HFA] 90 mcg/actuation HFA aerosol inhaler 2 inh inhalation Q4-6H PRN (Reason: shortness of breath or wheezing) Qty: 6.7 0RF No Action cholecalciferol (vitamin D3) 25 mcg (1,000 unit) capsule 25 mcg PO DAILY Qty: 90 3RF triamcinolone acetonide 0.1 % lotion 1 appl topical DAILY Qty: 60 0RF ammonium lactate [AmLactin] 12 % lotion 1 appl topical DAILY Qty: 225 1RF terbinafine HCl 250 mg tablet 250 mg PO DAILY 56 Days Qty: 56 0RF Print Language: [place]
[2025-08-07 12:21] VITALS: PULSE 81; RESP 18; O2SAT 95
[2025-08-07] MEDS: Albuterol/Iprat 2.5/0.5MG 3 ML AMPUL.NEB INHALE (12:25)
[2025-08-07 13:11] VITALS: BP 123/73; PULSE 82; RESP 16; TEMP 37; O2SAT 95
[2025-08-07 13:43] VITALS: BP 123/73; PULSE 82; RESP 16; TEMP 37; O2SAT 95
== END 2025-08-07 13:44 | disposition home or self-care (01) ==
PROVIDERS: Emergency Provider Emergency Medicine
DX: J06.9 Acute upper respiratory infection, unspecified (principal); Z87.891 Personal history of nicotine dependence
CPT/HCPCS: 36415; 71046; 80048; 84484; 85025; 87637; 93005; 94640; 99284; 99285

== ENCOUNTER → 2025-08-07 10:24 | Outpatient (BNV) | payer SELFPAY | PROVIDERS: Emergency Provider Emergency Medicine; Visit Provider Internal Medicine | DX: R07.9 Chest pain, unspecified (principal) | CPT/HCPCS: 93010 ==

== ENCOUNTER → 2025-08-07 10:59 | Outpatient (BNV) | payer SELFPAY | PROVIDERS: Emergency Provider Emergency Medicine; Visit Provider Radiology Vascular & Interventional Radiology | DX: R05.9 Cough, unspecified (principal) | CPT/HCPCS: 71046 ==